=== PATIENT | female | born 1995 | race Caucasian/White ===

== ENCOUNTER 2017-06-19 22:21 | Outpatient (CLI) | payer OTHER ==
[~2017-06-19 22:21] MED LIST: Codeine Sulfate PO; Fioricet,Esgic,Repan PO; Milk Of Magnesia,MOM PO; ORTHO TRI-CYCL1 EACH PO
[2017-06-19 22:58] VITALS: BP 128/73
== END 2017-06-19 23:35 | disposition home or self-care (01) ==
LOC: EME 22:21 → EDSTATUS 22:35 → LDRP-OP 22:38 → 2WEST 22:39
DX: O26.892 Other specified pregnancy related conditions, second trimester (principal); R10.9 Unspecified abdominal pain; Z3A.26 26 weeks gestation of pregnancy
CPT/HCPCS: 59025; G0378

== ENCOUNTER 2017-08-26 15:21 | Inpatient (IN) | payer OTHER ==
[2017-08-26] VITALS (25 sets, daily range): BP systolic 134–183; BP diastolic 70–95
[~2017-08-26] VITALS: Ht 162.6 cm; Wt 95.7 kg
[2017-08-26 16:10] LABS: EOSINOPHIL (%) 1.5 % (0-5); EOSINOPHIL COUNT 0.2 K/uL (0-0.3); HEMATOCRIT 39.5 % (36.0-46.0); IMMATURE GRANULOCYTE (%) 0.5 % (0.0-0.7); IMMATURE GRANULOCYTE COUNT 0.1 K/uL; INSTRUMENT ABS NEUTROPHIL CT 8.1 K/uL; LYMPHOCYTE COUNT 1.5 K/uL (1.0-2.8); MCH 32.1 PG (29.0-34.0); MCHC 34.9 G/DL (30.0-36.0); MCV 91.9 FL (83-99); MEAN PLAT.VOLUME 9.5 uM^3 (9.5-12.4); MONOCYTE (%) 5.1 % (3-12); MONOCYTE COUNT 0.5 K/uL (0-0.8); NEUTROPHIL (%) 78.2 % (45-76); NEUTROPHIL COUNT 8.1 K/uL (1.8-6.4); PLATELET COUNT 207 K/uL (156-360); RBC DIS.WIDTH-CV 12.1 % (11.8-14.6); RBC DIS.WIDTH-SD 40.7 % (39-53); WHITE BLOOD COUNT 10.3 K/uL (4.1-10.2)
[2017-08-26 16:24] LABS: ANION GAP 9 MEQ/L (2-14); CHLORIDE 107 MEQ/L (99-109); POTASSIUM 3.7 MEQ/L (3.7-5.4); SAMPLE HEMOLYSIS CHECK 0; SAMPLE ICTERIC CHECK 0; SAMPLE LIPEMIA CHECK 0; SODIUM 137 MEQ/L (136-147); TOTAL BILIRUBIN 0.3 MG/DL (0.0-1.0)
[2017-08-26 16:30] LABS: ALKALINE PHOSPHATASE 131 IU/L (3-129); GFR ESTIMATE (CALCULATED) > 59 mL/min/; GLUCOSE 72 mg/dL (70-99); UREA NITROGEN (BUN) 7 mg/dL (9-23)
[2017-08-26 17:26] LABS: UR CREATININE CONCENTRATION 56.8 MG/DL
[2017-08-27] VITALS (30 sets, daily range): BP systolic 126–183; BP diastolic 64–106
[2017-08-27 12:21] LABS: EOSINOPHIL (%) 1.4 % (0-5); EOSINOPHIL COUNT 0.1 K/uL (0-0.3); HEMATOCRIT 39.9 % (36.0-46.0); IMMATURE GRANULOCYTE (%) 0.7 % (0.0-0.7); IMMATURE GRANULOCYTE COUNT 0.1 K/uL; INSTRUMENT ABS NEUTROPHIL CT 6.4 K/uL; LYMPHOCYTE COUNT 1.4 K/uL (1.0-2.8); MCH 31.8 PG (29.0-34.0); MCHC 34.3 G/DL (30.0-36.0); MCV 92.6 FL (83-99); MEAN PLAT.VOLUME 9.5 uM^3 (9.5-12.4); MONOCYTE (%) 5.8 % (3-12); MONOCYTE COUNT 0.5 K/uL (0-0.8); NEUTROPHIL (%) 74.8 % (45-76); NEUTROPHIL COUNT 6.4 K/uL (1.8-6.4); PLATELET COUNT 214 K/uL (156-360); RBC DIS.WIDTH-CV 12.1 % (11.8-14.6); RBC DIS.WIDTH-SD 41.1 % (39-53); RED BLOOD COUNT 4.31 M/uL (3.80-5.20); WHITE BLOOD COUNT 8.5 K/uL (4.1-10.2)
[2017-08-27 14:28] LABS: DRSB INTERNAL CONTROL PASS; PROBE CHECK PASS; SPECIMEN PROCESSING CONTROL PASS
[2017-08-27] MEDS ORDERED: PRENATAL TABLE1 EACH PO (15:10)
[2017-08-28] VITALS (64 sets, daily range): BP systolic 113–182; BP diastolic 54–110
[2017-08-28 20:49] LABS: EOSINOPHIL (%) 0.4 % (0-5); HEMATOCRIT 35.8 % (36.0-46.0); IMMATURE GRANULOCYTE (%) 0.5 % (0.0-0.7); IMMATURE GRANULOCYTE COUNT 0.1 K/uL; INSTRUMENT ABS NEUTROPHIL CT 7.1 K/uL; LYMPHOCYTE COUNT 2.2 K/uL (1.0-2.8); MCH 32.1 PG (29.0-34.0); MCHC 34.9 G/DL (30.0-36.0); MEAN PLAT.VOLUME 9.4 uM^3 (9.5-12.4); MONOCYTE (%) 6.4 % (3-12); MONOCYTE COUNT 0.6 K/uL (0-0.8); NEUTROPHIL (%) 70.9 % (45-76); NEUTROPHIL COUNT 7.1 K/uL (1.8-6.4); PLATELET COUNT 181 K/uL (156-360); RBC DIS.WIDTH-CV 12.4 % (11.8-14.6); RBC DIS.WIDTH-SD 41.8 % (39-53); RED BLOOD COUNT 3.89 M/uL (3.80-5.20)
[2017-08-28 20:59] LABS: ANION GAP 10 MEQ/L (2-14); CHLORIDE 111 MEQ/L (99-109); POTASSIUM 3.5 MEQ/L (3.7-5.4); SAMPLE HEMOLYSIS CHECK 0; SAMPLE ICTERIC CHECK 0; SAMPLE LIPEMIA CHECK 0; SODIUM 140 MEQ/L (136-147); TOTAL BILIRUBIN 0.3 MG/DL (0.0-1.0)
[2017-08-28 21:04] LABS: ALKALINE PHOSPHATASE 111 IU/L (3-129); GFR ESTIMATE (CALCULATED) > 59 mL/min/; GLUCOSE 89 mg/dL (70-99); UREA NITROGEN (BUN) 7 mg/dL (9-23)
[2017-08-29] VITALS (28 sets, daily range): BP systolic 102–188; BP diastolic 55–101
[2017-08-29] MEDS ORDERED: MOTRIN800 MG PO (16:11)
[2017-08-29] MEDS ORDERED: PERCOCET 5/31 TABLET PO (16:11)
[2017-08-30] VITALS (7 sets, daily range): BP systolic 131–140; BP diastolic 63–81
[2017-08-30 07:37] LABS: EOSINOPHIL (%) 0.3 % (0-5); HEMATOCRIT 27.5 % (36.0-46.0); IMMATURE GRANULOCYTE (%) 0.5 % (0.0-0.7); IMMATURE GRANULOCYTE COUNT 0.1 K/uL; INSTRUMENT ABS NEUTROPHIL CT 9.3 K/uL; LYMPHOCYTE COUNT 1.1 K/uL (1.0-2.8); MCH 32.7 PG (29.0-34.0); MCHC 34.9 G/DL (30.0-36.0); MCV 93.5 FL (83-99); MEAN PLAT.VOLUME 9.1 uM^3 (9.5-12.4); MONOCYTE (%) 6.9 % (3-12); MONOCYTE COUNT 0.8 K/uL (0-0.8); NEUTROPHIL (%) 82.1 % (45-76); NEUTROPHIL COUNT 9.3 K/uL (1.8-6.4); PLATELET COUNT 146 K/uL (156-360); RBC DIS.WIDTH-CV 12.5 % (11.8-14.6); RBC DIS.WIDTH-SD 42.6 % (39-53); WHITE BLOOD COUNT 11.3 K/uL (4.1-10.2)
[2017-08-30 07:45] LABS: RED BLOOD COUNT 2.94 M/uL (3.80-5.20)
[2017-08-31] VITALS (7 sets, daily range): BP systolic 132–172; BP diastolic 73–100
[2017-09-01] VITALS (8 sets, daily range): BP systolic 138–163; BP diastolic 84–114
[2017-09-01 07:01] LABS: EOSINOPHIL (%) 4.3 % (0-5); EOSINOPHIL COUNT 0.4 K/uL (0-0.3); HEMATOCRIT 27.6 % (36.0-46.0); IMMATURE GRANULOCYTE (%) 0.7 % (0.0-0.7); IMMATURE GRANULOCYTE COUNT 0.1 K/uL; INSTRUMENT ABS NEUTROPHIL CT 7.4 K/uL; LYMPHOCYTE COUNT 1.4 K/uL (1.0-2.8); MCH 32.1 PG (29.0-34.0); MCHC 34.1 G/DL (30.0-36.0); MCV 94.2 FL (83-99); MEAN PLAT.VOLUME 9.3 uM^3 (9.5-12.4); MONOCYTE (%) 5.4 % (3-12); MONOCYTE COUNT 0.5 K/uL (0-0.8); NEUTROPHIL (%) 74.8 % (45-76); NEUTROPHIL COUNT 7.4 K/uL (1.8-6.4); PLATELET COUNT 174 K/uL (156-360); RBC DIS.WIDTH-CV 12.4 % (11.8-14.6); RED BLOOD COUNT 2.93 M/uL (3.80-5.20); WHITE BLOOD COUNT 9.9 K/uL (4.1-10.2)
[2017-09-01 07:53] LABS: ALKALINE PHOSPHATASE 93 IU/L (3-129); ANION GAP 9 MEQ/L (2-14); CHLORIDE 108 MEQ/L (99-109); GFR ESTIMATE (CALCULATED) > 59 mL/min/; GLUCOSE 82 mg/dL (70-99); SAMPLE HEMOLYSIS CHECK 0; SAMPLE ICTERIC CHECK 0; SAMPLE LIPEMIA CHECK 0; SODIUM 141 MEQ/L (136-147); UREA NITROGEN (BUN) 6 mg/dL (9-23); URIC ACID 5.1 mg/dL (3.1-9.2)
[2017-09-01 07:54] LABS: TOTAL BILIRUBIN 0.2 MG/DL (0.0-1.0)
[2017-09-02 03:23] VITALS: BP 156/99
[2017-09-02 09:00] VITALS: BP 141/97
[2017-09-02 09:59] VITALS: BP 139/88
[2017-09-02] MEDS ORDERED: NIFEDIPINE ER30 MG PO (10:53)
[2017-09-02] MEDS ORDERED: LABETALOL HCL200 MG PO (10:53)
== END 2017-09-02 15:05 | disposition home or self-care (01) | DRG 765 ==
LOC: LDRP-OP 15:21 → 2WEST 15:22 → LDRP-OP 11-01 23:54
PROVIDERS: Nurse Practitioner; Obstetrics & Gynecology; Obstetrics & Gynecology Gynecology
PROC: 3E0P7GC Introduction of Other Therapeutic Substance into Female Reproductive, Via Natural or Artificial Opening (ICD-10-PCS; 2017-08-26)
PROC: 3E0S3BZ Introduction of Anesthetic Agent into Epidural Space, Percutaneous Approach (ICD-10-PCS; 2017-08-28)
PROC: 10D00Z1 Extraction of Products of Conception, Low, Open Approach (ICD-10-PCS; principal; 2017-08-29)
DX: O14.14 Severe pre-eclampsia complicating childbirth (principal); O99.02 Anemia complicating childbirth; Z37.0 Single live birth; Z3A.36 36 weeks gestation of pregnancy; O60.14X1 Preterm labor third trimester with preterm delivery third trimester, fetus 1; O61.0 Failed medical induction of labor; O36.5931 Maternal care for other known or suspected poor fetal growth, third trimester, fetus 1; O62.0 Primary inadequate contractions; O62.1 Secondary uterine inertia; D50.9 Iron deficiency anemia, unspecified; O12.24 Gestational edema with proteinuria, complicating childbirth; R06.02 Shortness of breath; Z80.3 Family history of malignant neoplasm of breast; Z80.41 Family history of malignant neoplasm of ovary; Z82.49 Family history of ischemic heart disease and other diseases of the circulatory system; R00.2 Palpitations; T46.1X5A Adverse effect of calcium-channel blockers, initial encounter; Y92.230 Patient room in hospital as the place of occurrence of the external cause; R00.0 Tachycardia, unspecified
CPT/HCPCS: 76818; 80053; 82570; 84156; 84550; 85025; 87653; 99202; C1755; G0378; J0595; J0690; J0702; J1885; J2250; J2270; J2274; J3010; J7120